=== PATIENT | female | born 1985 | race Caucasian/White ===

== ENCOUNTER 2018-05-21 03:58 | Emergency (ER) | payer MEDICAID, OTHER ==
[~2018-05-21] VITALS: Ht 172.7 cm; Wt 61.3 kg
[2018-05-21] MEDS ORDERED: SODIUM CHLORIDE 0.9% 1,000ML IVBOLUS ONE (05:00)
[2018-05-21] MEDS ORDERED: AMPICILLIN/SULBACTAM 3 GM in SODIUM CHLORIDE 0.9% 100 ML IV ONE (05:00)
[2018-05-21] MEDS ORDERED: ONDANSETRON 2MG/ML, 2ML IVPush ONE (05:00)
[2018-05-21] MEDS ORDERED: DEXAMETHASONE 4 MG/ML, 1ML IVPush ONE (05:00)
[2018-05-21] MEDS ORDERED: BENZOCAINE AEROSOL SPRAY 20%, 60ML TP ONE (05:00)
[2018-05-21] MEDS ORDERED: MORPHINE SULFATE 4 MG/ML, 1ML IVPush PRN (05:00)
[2018-05-21] MEDS ORDERED: SODIUM CHLORIDE FLUSH 10ML SYR IVF ONE (05:00)
[2018-05-21] MEDS ORDERED: MORPHINE SULFATE 4 MG/ML, 1ML ONE (05:01)
[2018-05-21] MEDS ORDERED: DEXAMETHASONE 4 MG/ML, 5ML ONE (05:01)
[2018-05-21] MEDS ORDERED: ONDANSETRON 2MG/ML, 2ML ONE (05:01)
[2018-05-21 05:14] LABS: BASOPHILS % (AUTO) 0 % (0-1); EOSINOPHILS # (AUTO) 0.02 x10^3/uL (0-0.4); EOSINOPHILS % (AUTO) 0 % (1-7); LYMPHOCYTES # (AUTO) 0.46 x10^3/uL (1-3.4); LYMPHOCYTES % (AUTO) 3 % (22-44); MD NO; MEAN CORPUSCULAR HEMOGLOBIN 30.3 pg (27.0-34.8); MEAN CORPUSCULAR HGB CONC 34.6 g/dL (32.4-35.8); MEAN CORPUSCULAR VOLUME 87.7 fL (80-100); MEAN PLATELET VOLUME 7.8 fL (7.4-10.4); MONOCYTES # (AUTO) 0.75 x10^3/uL (0.2-0.8); MONOCYTES % (AUTO) 4 % (2-9); NEUTROPHILS # (AUTO) 16.63 x10^3/uL (1.8-6.8); NEUTROPHILS % (AUTO) 93 % (42-75); PLATELET COUNT 160 x10^3/uL (130-400); RED BLOOD COUNT 4.52 x10^6/uL (3.82-5.3); RED CELL DISTRIBUTION WIDTH 13.1 % (9.6-15.2)
[2018-05-21 05:29] LABS: ALBUMIN 3.3 g/dL (3.4-5.0); ANION GAP 10 mmol/L (5-15); CALCIUM 8.4 mg/dL (8.5-10.1); CHLORIDE 108 mmol/L (98-107); CREATININE 0.88 mg/dL (0.55-1.02)
[2018-05-21] MEDS ORDERED: LIDOCAINE 1%-EPI 1:100K, 20ML INFIL ONE (05:30)
[2018-05-21] MEDS ORDERED: LIDOCAINE 1%-EPI 1:100K, 20ML ONE (06:17)
[2018-05-21 08:30] VITALS: BP 101/61
== END 2018-05-21 08:32 | disposition home or self-care (01) ==
LOC: ED 06:11
DX: J03.90 Acute tonsillitis, unspecified (principal)
CPT/HCPCS: 10160; 36415; 80048; 82040; 85025; 86308; 87081; 87880; 96365; 96375; 99284; J0295; J1100; J2405; J7030